=== PATIENT | male | born 1975 | race Caucasian/White ===

== ENCOUNTER 2023-08-17 02:38 | Emergency (ER) | payer MEDICAID ==
[~2023-08-17] VITALS: Ht 175.3 cm; Wt 90.9 kg
[2023-08-17] MEDS: HYDROcodone/acetaminophen 10/325mg tab PO ONE (03:17)
[2023-08-17 06:22] VITALS: BP 125/77; PULSE 90; RESP 16; TEMP 98.1; O2SAT 99
== END 2023-08-17 06:27 | disposition home or self-care (01) ==
LOC: ER 02:39
DX: S90.02XA Contusion of left ankle, initial encounter (principal); T14.8XXA Other injury of unspecified body region, initial encounter; I10 Essential (primary) hypertension; F15.90 Other stimulant use, unspecified, uncomplicated; Z88.0 Allergy status to penicillin; V89.2XXA Person injured in unspecified motor-vehicle accident, traffic, initial encounter; Y93.89 Activity, other specified; Y92.89 Other specified places as the place of occurrence of the external cause; Y99.8 Other external cause status
CPT/HCPCS: 73552; 73564; 73610; 73630; 99284; A6222; A6223; A6258; A6449